=== PATIENT | male | born 2000 | race Caucasian/White ===

== ENCOUNTER 2021-01-02 14:17 | Emergency (ER) | payer OTHER ==
[~2021-01-02] VITALS: Ht 177.8 cm; Wt 86.0 kg
[2021-01-02 14:20] VITALS: BP 156/93
--- NOTE | 2021-01-02 14:25 | PHYS DOC ---
Past History Past Medical History: No Pertinent History Adult General HPI HPI Patient is a 20-year-old male who presents for hand laceration. This was suffered approximately 2 hours prior to arrival while at work, patient was handling dirty piece of metal when said piece of metal slid across the extensor surface of right hand causing laceration to dorsal portion of right index finger just distal to knuckle. Hemostasis was achieved with direct pressure. He subsequently sought care at 2 separate urgent cares that were not comfortable with laceration repair due to extent of wound with concern for potential tendon involvement prompting them to refer patient to our facility for evaluation. On evaluation, patient has focal pain at laceration site only. Denies any changes in motor or sensory function, no neurologic deficits reported. He has never had an accident like this in the past. His tetanus is out of date Review of Systems Review of Systems Fourteen body systems of review of systems have been reviewed. See HPI for per tinent positives and negative responses, other buenrostro all other systems are negative, non-pertinent or non-contributory Physical Exam Physical Exam Constitutional: Well developed, well nourished, no acute distress, non-toxic appearance. HENT: Normocephalic, atraumatic, bilateral external ears normal, oropharynx moist, no oral exudates, nose normal. Eyes: PERRLA, EOMI, conjunctiva normal, no discharge. Neck: Normal range of motion, no tenderness, supple, no stridor. Cardiovascular: Heart rate regular per monitor Lungs & Thorax: No respiratory distress or accessory muscle use, bilateral chest rise Abdomen: Abdomen soft, non-tender, bowel sounds present in all quadrants, no guarding or rebound, nonacute abdomen. Skin: Warm, dry, no erythema, no rash. Back: No tenderness, no CVA tenderness. Extremities: No cyanosis, no clubbing, passive and active ROM of all digits intact, no edema. 1.2 cm laceration over dorsal portion of right knuckle with minimal involvement in underlying tendon sheath. Tendon tammy fully intact, 5/5 muscle strength. Neurologically intact as seen below. Cap refill of all di gits less than 3 seconds. Neurologic: Alert and oriented X 3, normal motor & sensory function, median ulnar and radial nerves of right upper extremity intact, no focal deficits noted. Psychologic: Affect normal, judgement normal, mood normal. Current Patient Data Vital Signs Vital Signs Date Time Temp Pulse Resp B/P (MAP) Pulse Ox O2 Delivery O2 Flow Rate FiO2 01/02/21 14:20 97.2 118 16 156/93 (114) 99 Room Air Vital Signs Date Time Temp Pulse Resp B/P (MAP) Pulse Ox O2 Delivery O2 Flow Rate FiO2 01/02/21 14:20 97.2 118 16 156/93 (114) 99 Room Air EKG EKG [] Radiology/Procedures Radiology/Procedures [] Heart Score C/O Chest Pain: No HEART Score for Chest Pain: HEART Score for Chest Pain Response (Comments) Value History Slighlty/Non-Suspicious 0 Age < 45 0 Risk Factors No Risk Factors 0 Total 0 Risk Factors: Risk Factors: DM, Current or recent (<one month) smoker, HTN, HLP, family history of CAD, obesity. Risk Scores: Risk Factors: DM, Current or recent (<one month) smoker, HTN, HLP, family history of CAD, obesity. Course & Med Decision Making Course & Med Decision Making HPI and physical examination consistent with laceration with minimal involvement of underlying extensor tendon. Motor, sensory and neurologic function fully intact. Wound explored extensively after irrigation, no retained foreign body or other concerning findings Joint decision was made with patient to pursue repair with sutures. Total of x3 simple interrupted sutures applied with good closure achieved. Also discussed role of antibiotics, 1000 mg Keflex administered today while in ER with subsequent prescription written. Tetanus vaccine updated Strict return precautions were discussed with patient with good understanding, all questions and concerns addressed prior to ER departure with instructions for repeat evaluation by healthcare provider in 7 to 10 days for consideration of suture removal Dragon Disclaimer Dragon Disclaimer This electronic medical record was generated, in whole or in part, using a voice recognition dictation system. Laceration Repair Lac Repair Laceration #1: 1.2 centimeter linear wound. A time out was undertaken to determine that this was the correct patient and the correct procedure for this patient. The patients laceration was prepped and cleansed in the usual fashion. It was then copiously irrigated with normal saline with high pressure and high volume. The wound was explored in a clear and bloodless field to the base of the wound. There was no evidence of underlying fracture or foreign body. x3 nonabsorbable sutures were placed in a simple interrupted fashion to close the wound. Excellent care was taken to achieve maximal cosmesis. The patient tolerated this procedure well there were no observed nor reported complications. Departure Departure: Impression: Primary Impression: Laceration of extensor structure of index finger at hand level Disposition: 01 DC HOME SELF CARE/HOMELESS Condition: STABLE Referrals: PCP,DEN (PCP) Patient Instructions: Laceration Care, Adult Additional Instructions: As discussed prior to ER departure, you were treated for a finger laceration on the extensor surface. There is mild involvement of your extensor tendon but structural integrity was intact so was nerve in overall motor and sensory function. There is no indication for emergent and/or surgical intervention at present. Your laceration was sutured shut with times 3 sutures, please be sure to follow-up with a professional health care provider in upcoming 7 to 10 days for repeat evaluation to consider need for removal at that time. You were also started on antibiotics today, please take these as prescribed to completion. You were also given an updated tetanus booster given that this was out of date. As discussed, please use attached resources to find primary care provider of your liking to establish care and follow-up on ER visit today. If symptoms do not resolve there might be a role and specialist follow-up in outpatient setting. If any concerning signs or symptoms present prior to outpatient follow-up please do not hesitate to come back for repeat evaluation Scripts Cephalexin (CEPHALEXIN) 500 Mg Tablet 2 TAB PO BID for Laceration for 7 Days, #28 TAB Prov: CHRISTINA CROWDER DO 01/02/21 CHRISTINA CROWDER DO Jan 02, 2021 14:25
[2021-01-02] MEDS ORDERED: LIDOCAINE 2% 20 ML VIAL. ONE (14:29)
[2021-01-02] MEDS ORDERED: CEPHALEXIN 250 MG CAPSULE PO ONE (14:45)
[2021-01-02] MEDS ORDERED: DIPH,PERTUSS(ACELL),TET VAC/PF 0.5 ML SYRINGE. VAX IM ONE (14:45)
[2021-01-02] MEDS ORDERED: CEPH500T PO (14:49)
== END 2021-01-02 15:14 | disposition home or self-care (01) ==
LOC: ER 14:17
DX: S61.210A Laceration without foreign body of right index finger without damage to nail, initial encounter (principal); Y28.8XXA Contact with other sharp object, undetermined intent, initial encounter; Y93.89 Activity, other specified; Y92.69 Other specified industrial and construction area as the place of occurrence of the external cause; Y99.0 Civilian activity done for income or pay
CPT/HCPCS: 12001; 90471; 90715; 99283